=== PATIENT | female | born 1985 | race Caucasian/White ===

== ENCOUNTER 2018-02-06 08:24 | Day surgery (SDC) | payer BC, OTHER ==
[2018-02-06] MEDS ORDERED: Glycopyrrolate 0.2 MG/ML 2 ML SDV IV ONE (08:25)
[2018-02-06] MEDS ORDERED: Ondansetron 4 MG/2 ML SDV IV ONE (08:25)
[2018-02-06] MEDS ORDERED: Midazolam 1 MG/ML 2 ML SDV IV ONE (08:25)
[2018-02-06] MEDS ORDERED: fentaNYL 100 MCG/2 ML SDV IV ONE (08:25)
[2018-02-06] MEDS ORDERED: Ketorolac 30 MG/ML SDV IVPUSH ONE (08:25)
[2018-02-06] MEDS ORDERED: Propofol 200 MG/20 ML SDV IV ONE (08:25)
[2018-02-06] MEDS ORDERED: Dexamethasone 4 MG/ML SDV IV ONE (08:25)
[2018-02-06] MEDS ORDERED: Lactated Ringers 1,000 ML IV SCH (10:00)
[2018-02-06] MEDS ORDERED: Silver Nitrate Applicator Each ONE (10:05)
[2018-02-06] MEDS ORDERED: Ferric Subsulfate Topical Soln 8 GM (8 ML) Bottle ONE (10:05)
[2018-02-06] MEDS ORDERED: Oxytocin/Normal Saline 0 UNIT/0 ML BAG ONE (10:06)
--- NOTE | 2018-02-06 11:54 | OR ---
DATE: 02/06/2018 PREOPERATIVE DIAGNOSIS: Persistent menorrhagia and significant clotting. OPERATION PERFORMED: Examination under anesthesia with D and C. POSTOPERATIVE DIAGNOSES: Persistent menorrhagia and significant clotting with evidence of second-degree uterine prolapse. COMPLICATIONS: None. ESTIMATED BLOOD LOSS: 25 mL. ANESTHESIA: General. DESCRIPTION: After the induction of satisfactory general anesthesia and with the vagina and cervix routinely prepped and draped in the dorsal lithotomy position, the weighted speculum was inserted. Just before this, the pelvic exam was done and revealed no cervical lesions. The uterus was in the [id number] position and was thought to be normal sized. There were no adnexal masses detected. Vaginal canal was negative and vulvar exam also was negative. Now, the single-tooth tenaculum was attached to the anterior lip of the cervix and I did notice a second-degree uterine prolapse present. The endocervical canal was now carefully inspected further and the uterus was sounded to 8 cm. Now, the endocervical canal was progressively dilated to #8. Now the curette was introduced and a moderate amount of tissue was obtained on the curettage. Great caution was taken to make sure that all aspects of the endometrial cavity were carefully and systematically curetted. Grossly, the tissue appeared within normal limits. Once again, the curettage was repeated and extra caution was taken to make sure that all aspects of the cavity were carefully and systematically curetted. All of this tissue was submitted to pathology of course. All of the instruments were now removed. The operative site was hemostatic. Estimated blood loss was approximately 25 mL. Sponge count was reported as correct. There were no intraoperative nor immediate postoperative complications whatsoever. The patient tolerated the procedure well and went to the recovery room in good condition. The patient does have evidence of second-degree uterine prolapse as mentioned above. Postoperative instructions have also been given to her and she will call us at once if any questions or problems with fever, excess pain, excess bleeding, unusual malaise, or any bothersome symptoms whatsoever. She will avoid intercourse for approximately 2-3 weeks. She will see me in the office in approximately 10-12 days and if she is doing well, she can report to me on the telephone and does not need to see us in the office. The patient will monitor her symptoms closely in the next subsequent months and let us know if any symptoms seem to persist, change, or worsen of course. [facility] /[id number]
[2018-02-06 12:29] VITALS: BP 111/50
== END 2018-02-06 12:36 | disposition home or self-care (01) ==
LOC: DL.SDS 08:24
PROVIDERS: ATTEND Obstetrics & Gynecology
DX: N92.0 Excessive and frequent menstruation with regular cycle (principal); N81.2 Incomplete uterovaginal prolapse; Z79.899 Other long term (current) drug therapy
CPT/HCPCS: 36415; 58120; 81025; 85027; J1100; J1885; J2250; J2405; J2704; J3010; J7120; J3490

== ENCOUNTER 2018-05-06 23:55 | Emergency (ER) | payer OTHER ==
[2018-05-07 00:34] VITALS: BP 132/61
[2018-05-07] MEDS ORDERED: Ondansetron 4 MG/2 ML SDV IV ONE (02:08)
[2018-05-07] MEDS ORDERED: Sodium Chloride 0.9% 1,000 ML IV ONE (02:11)
[2018-05-07] MEDS ORDERED: Ketorolac 30 MG/ML SDV IVPUSH ONE (02:20)
[2018-05-07 02:46] LABS: ANION GAP 9.6; CHLORIDE,CL 107 mmol/L (101-111); SODIUM,NA 138 mmol/L (135-145)
--- NOTE | 2018-05-07 03:06 | EDM.PDOC ---
ED HPI GENERAL MEDICAL PROBLEM - General Chief Complaint: Headache Stated Complaint: HEADACHE, FEEL OFF [id number] Time Seen by Provider: 05/07/18 00:35 Source of Information: Reports: Patient History Limitations: Reports: No Limitations - History of Present Illness INITIAL COMMENTS - FREE TEXT/NARRATIVE: Migraine hx, usually every 6 months, experiences aura normally, tonight went to bed with headache woke feeling disoriented and blurred vision, some tingling in right hand. All previous with headaches, Better now. Took 600mg ibuprofen. Nausea earlier better now also. Thinks dehydrated. Some light sensitivity Headache Pain Score (Numeric/FACES): 6 - Related Data Allergies Allergy/AdvReac Type Severity Reaction Status Date / Time No Known Allergies Allergy Verified 05/07/18 00:34 Home Meds: Home Meds Ibuprofen 600 mg PO ASDIRECTED PRN 11/26/14 [History] Multivitamin [Multi-Vitamin Daily] 1 tab PO DAILY 02/05/18 [History] Past Medical History - Past Health History Medical/Surgical History: Denies Medical/Surgical History HEENT History: Reports: None Cardiovascular History: Reports: None Respiratory History: Reports: None Gastrointestinal History: Reports: GERD Genitourinary History: Reports: None 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: Musculoskeletal History: Reports: Back Pain, Chronic Other Musculoskeletal History: Left breast lump (Nov-2014) Neurological History: Reports: Migraines Psychiatric History: Reports: ADD Endocrine/Metabolic History: Reports: None Hematologic History: Reports: None Immunologic History: Reports: None Oncologic (Cancer) History: Reports: None Other Oncologic History: lump on left breast Dermatologic History: Reports: None - Infectious Disease History Infectious Disease History: Reports: Chicken Pox - Past Surgical History Head Surgeries/Procedures: Reports: None Other HEENT Surgeries/Procedures: [place] teeth and skin graft to mouth Respiratory Surgical History: Reports: None GI Surgical History: Reports: Colonoscopy Other GI Surgeries/Procedures: has a hernia Female Surgical History: Reports: None Musculoskeletal Surgical History: Reports: None Oncologic Surgical History: Reports: Biopsy of Breast Social & Family History - Family History Family Medical History: Noncontributory - Tobacco Use Smoking Status *Q: Never Smoker - Caffeine Use Caffeine Use: Reports: Coffee Caffeine Use Comment: 2. cups daily - Recreational Drug Use Recreational Drug Use: No - Living Situation & Occupation Living situation: Reports: Occupation: Employed ED ROS GENERAL - Review of Systems Review Of Systems: ROS reveals no pertinent complaints other than HPI. - Physical Exam Exam: See Below Exam Limited By: No Limitations General Appearance: Alert, No Apparent Distress, Anxious Eye Exam: Bilateral Eye: EOMI, PERRL, Other (photosensitive) Ears: Normal External Exam, Normal TMs Nose: Normal Inspection Throat/Mouth: Normal Inspection, Normal Lips, Normal Voice Head Exam: Atraumatic, Normocephalic Neck: Normal Inspection, Full Range of Motion, Tender Lateral (muscle tension). No: Limited Range of Motion, Tender Midline Respiratory/Chest: No Respiratory Distress, Lungs Clear Cardiovascular: Normal Peripheral Pulses, Regular Rate, Rhythm GI/Abdominal: Normal Bowel Sounds, Soft Neuro Exam (Abbreviated): Alert, Oriented, Normal Cognition, No Motor/Sensory Deficits. No: Confused, Disoriented, Slow to Respond, Memory Loss Recent Events , Abnormal Gait, Abnormal Reflexes Back Exam: Normal Inspection Extremities: Normal Inspection Psychiatric: Normal Affect, Normal Mood Skin Exam: Warm, Dry, Intact, Normal Color Course - Vital Signs Last Recorded V/S: Last Vital Signs Temp 97.6 F 05/07/18 00:29 Pulse 60 05/07/18 00:29 Resp 16 05/07/18 00:29 BP 132/61 05/07/18 00:29 Pulse Ox 100 05/07/18 00:29 - Orders/Labs/Meds Labs: Laboratory Tests 05/07/18 05/07/18 Range/Units 02:20 02:20 WBC 4.8 L (5.0-10.0) 10^3/uL RBC 3.92 L (4.2-5.4) 10^6/uL Hgb 12.1 D (12.0-16.0) g/dL Hct 36.8 L (37.0-47.0) % MCV 93.9 (80-100) fL MCH 30.9 (27.0-34.0) pg MCHC 32.9 L (33.0-35.0) g/dL Plt Count 235 (150-450) 10^3/uL Neut % (Auto) 46.2 (42.2-75.2) % Lymph % (Auto) 44.9 (20.5-50.1) % [place] % (Auto) 7.9 (2-8) % Eos % (Auto) 0.8 L (1.0-3.0) % Baso % (Auto) 0.2 (0.0-1.0) % Sodium 138 (135-145) mmol/L Potassium 3.6 (3.6-5.0) mmol/L Chloride 107 (101-111) mmol/L Carbon Dioxide 25.0 (21.0-31.0) mmol/L Anion Gap 9.6 BUN 14 (7-18) mg/dL Creatinine 0.8 (0.6-1.3) mg/dL Est Cr Clr Drug Dosing 110.18 mL/min Estimated GFR (MDRD) > 60 BUN/Creatinine Ratio 17.50 Glucose 86 (74-105) mg/dL Calcium 9.0 (8.4-10.2) mg/dl Total Bilirubin 0.5 (0.2-1.0) mg/dL AST 15 (10-42) IU/L ALT 15 (10-60) IU/L Alkaline Phosphatase 27 L (42-121) IU/L Total Protein 6.9 (6.7-8.2) g/dl Albumin 4.4 (3.2-5.5) g/dl Globulin 2.5 Albumin/Globulin Ratio 1.76 Meds: Medications Discontinued Medications Generic Name Dose Route Start Last Admin Trade Name Freq PRN Reason Stop Dose Admin Sodium Chloride 1,000 mls @ 999 mls/hr 05/07/18 02:11 05/07/18 02:24 Normal Saline IV 05/07/18 03:11 999 mls/hr .BOLUS ONE Administration Ketorolac Tromethamine 15 mg 05/07/18 02:20 05/07/18 02:24 Toradol IVPUSH 05/07/18 02:21 15 mg ONETIME ONE Administration Ondansetron HCl 4 mg 05/07/18 02:08 Zofran IV 05/07/18 02:09 ONETIME ONE Departure - Departure Time of Disposition: 03:04 Disposition: Home, Self-Care 01 Condition: Good Clinical Impression: Migraine - Discharge Information Forms: ED Department Discharge Additional Instructions: rest light activity increase fluid intake follow up as needed
== END 2018-05-07 03:16 | disposition home or self-care (01) ==
LOC: DL.ED 23:55
DX: G43.909 Migraine, unspecified, not intractable, without status migrainosus (principal)
CPT/HCPCS: 36415; 80053; 85025; 96361; 96374; 99283; J1885; J7030

== ENCOUNTER 2019-09-26 21:31 | Emergency (ER) | payer BC ==
[2019-09-26 21:43] VITALS: BP 119/69; PULSE 54
[2019-09-26 22:14] LABS: ANION GAP 12.6; CHLORIDE,CL 104 mmol/L (101-111); SODIUM,NA 136 mmol/L (135-145)
--- NOTE | 2019-09-26 22:14 | EDM.PDOC ---
ED HPI GENERAL MEDICAL PROBLEM - General Chief Complaint: Abdominal Pain Stated Complaint: DONT FEEL GOOD Time Seen by Provider: 09/26/19 22:04 Source of Information: Reports: Patient History Limitations: Reports: No Limitations - History of Present Illness INITIAL COMMENTS - FREE TEXT/NARRATIVE: ED ambulatory with c/o mid abdominal pain, some improvement from onset of pain, Diarrhea mutiple times this dave. Nausea at onset none now. No fever or chills. Previous cholecystectomy. No similar sx. No other family members ill. 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: Musculoskeletal History: Reports: Back Pain, Chronic Other Musculoskeletal History: Left breast lump (Nov-2014) Neurological History: Reports: Migraines Psychiatric History: Reports: ADD Endocrine/Metabolic History: Reports: None Hematologic History: Reports: None Immunologic History: Reports: None Oncologic (Cancer) History: Reports: None Other Oncologic History: lump on left breast Dermatologic History: Reports: None - Infectious Disease History Infectious Disease History: Reports: Chicken Pox - Past Surgical History Head Surgeries/Procedures: Reports: None Other HEENT Surgeries/Procedures: [place] teeth and skin graft to mouth Respiratory Surgical History: Reports: None GI Surgical History: Reports: Cholecystectomy, Colonoscopy Other GI Surgeries/Procedures: has a hernia Female Surgical History: Reports: None Musculoskeletal Surgical History: Reports: None Oncologic Surgical History: Reports: Biopsy of Breast Social & Family History - Family History Family Medical History: Noncontributory - Tobacco Use Smoking Status *Q: Former Smoker Used Tobacco, but Quit: Yes Month/Year Tobacco Last Used: 0000 - Caffeine Use Caffeine Use: Reports: Coffee Caffeine Use Comment: 2. cups daily - Recreational Drug Use Recreational Drug Use: No - Living Situation & Occupation Living situation: Reports: Occupation: Employed ED ROS GENERAL - Review of Systems Review Of Systems: Comprehensive ROS is negative, except as noted in HPI. ED EXAM, GI/ABD - Physical Exam Exam: See Below Exam Limited By: No Limitations General Appearance: Alert, Mild Distress ( appears improved, less discomfort than on presentation to ED. ) Eyes: Bilateral: EOMI Ears: Normal External Exam Nose: Normal Inspection Throat/Mouth: Normal Inspection Head: Atraumatic, Normocephalic Neck: Normal Inspection Respiratory/Chest: No Respiratory Distress, Lungs Clear, Normal Breath Sounds Cardiovascular: Regular Rate, Rhythm GI/Abdominal Exam: Normal Bowel Sounds, Soft, Non-Tender Back Exam: Normal Inspection, Full Range of Motion Extremities: Normal Inspection Neurological: Alert, Oriented, Normal Cognition Psychiatric: Normal Affect Skin Exam: Warm, Dry, Intact, Normal Color. No: Diaphoretic, Pallor Course - Vital Signs Last Recorded V/S: Last Vital Signs Temp 96.2 F 09/26/19 21:39 Pulse 54 L 09/26/19 21:39 Resp 16 09/26/19 21:39 BP 119/69 09/26/19 21:39 Pulse Ox 100 09/26/19 21:39 - Orders/Labs/Meds Labs: Laboratory Tests 09/26/19 09/26/19 09/26/19 Range/Units 21:48 21:48 21:48 WBC 5.9 (5.0-10.0) 10^3/uL RBC 4.28 (4.2-5.4) 10^6/uL Hgb 13.5 (12.0-16.0) g/dL Hct 38.9 (37.0-47.0) % MCV 90.9 D (80-100) fL MCH 31.5 (27.0-34.0) pg MCHC 34.7 (33.0-35.0) g/dL Plt Count 236 (150-450) 10^3/uL Neut % (Auto) 67.3 (42.2-75.2) % Lymph % (Auto) 23.6 (20.5-50.1) % [place] % (Auto) 7.8 (2-8) % Eos % (Auto) 1.0 (1.0-3.0) % Baso % (Auto) 0.3 (0.0-1.0) % Sodium 136 (135-145) mmol/L Potassium 3.6 (3.6-5.0) mmol/L Chloride 104 (101-111) mmol/L Carbon Dioxide 23.0 (21.0-31.0) mmol/L Anion Gap 12.6 BUN 13 (7-18) mg/dL Creatinine 0.7 (0.6-1.3) mg/dL Est Cr Clr Drug Dosing 120.58 mL/min Estimated GFR (MDRD) > 60 BUN/Creatinine Ratio 18.57 Glucose 101 (74-105) mg/dL Lactic Acid 1.0 (0.5-2.2) mmol/L Calcium 8.7 (8.4-10.2) mg/dl Total Bilirubin 0.7 (0.2-1.0) mg/dL AST 40 (10-42) IU/L ALT 30 (10-60) IU/L Alkaline Phosphatase 35 L (42-121) IU/L Total Protein 7.2 (6.7-8.2) g/dl Albumin 4.5 (3.2-5.5) g/dl Globulin 2.7 Albumin/Globulin Ratio 1.67 Urine Color (YELLOW) Urine Appearance (CLEAR) Urine pH (5.0-9.0) Ur Specific [place] (1.005-1.030) Urine Protein (NEGATIVE) Urine Glucose (UA) (NEGATIVE) Urine Ketones (NEGATIVE) Urine Occult Blood (NEGATIVE) Urine Nitrite (NEGATIVE) Urine Bilirubin (NEGATIVE) Urine Urobilinogen (0.2-1.0) mg/dL Ur Leukocyte Esterase (NEGATIVE) Urine RBC /HPF Urine WBC (0-5/HPF) /HPF Ur Epithelial Cells (NOT SEEN) /HPF Urine Bacteria (0-FEW/HPF) /HPF Urine Mucus (NOT SEEN) /LPF Urine HCG, Qual 09/26/19 09/26/19 Range/Units 22:09 22:09 WBC (5.0-10.0) 10^3/uL RBC (4.2-5.4) 10^6/uL Hgb (12.0-16.0) g/dL Hct (37.0-47.0) % MCV (80-100) fL MCH (27.0-34.0) pg MCHC (33.0-35.0) g/dL Plt Count (150-450) 10^3/uL Neut % (Auto) (42.2-75.2) % Lymph % (Auto) (20.5-50.1) % [place] % (Auto) (2-8) % Eos % (Auto) (1.0-3.0) % Baso % (Auto) (0.0-1.0) % Sodium (135-145) mmol/L Potassium (3.6-5.0) mmol/L Chloride (101-111) mmol/L Carbon Dioxide (21.0-31.0) mmol/L Anion Gap BUN (7-18) mg/dL Creatinine (0.6-1.3) mg/dL Est Cr Clr Drug Dosing mL/min Estimated GFR (MDRD) BUN/Creatinine Ratio Glucose (74-105) mg/dL Lactic Acid (0.5-2.2) mmol/L Calcium (8.4-10.2) mg/dl Total Bilirubin (0.2-1.0) mg/dL AST (10-42) IU/L ALT (10-60) IU/L Alkaline Phosphatase (42-121) IU/L Total Protein (6.7-8.2) g/dl Albumin (3.2-5.5) g/dl Globulin Albumin/Globulin Ratio Urine Color Yellow (YELLOW) Urine Appearance Clear (CLEAR) Urine pH 6.5 (5.0-9.0) Ur Specific [place] 1.025 (1.005-1.030) Urine Protein Trace H (NEGATIVE) Urine Glucose (UA) Negative (NEGATIVE) Urine Ketones Negative (NEGATIVE) Urine Occult Blood Trace-intact H (NEGATIVE) Urine Nitrite Negative (NEGATIVE) Urine Bilirubin Negative (NEGATIVE) Urine Urobilinogen 1.0 (0.2-1.0) mg/dL Ur Leukocyte Esterase Negative (NEGATIVE) Urine RBC 5-10 H /HPF Urine WBC 5-10 H (0-5/HPF) /HPF Ur Epithelial Cells Moderate H (NOT SEEN) /HPF Urine Bacteria Few (0-FEW/HPF) /HPF Urine Mucus Moderate H (NOT SEEN) /LPF Urine HCG, Qual Negative - Re-Assessments/Exams Free Text/Narrative Re-Assessment/Exam: 09/27/19 02:55 Pain improved Departure - Departure Time of Disposition: 22:46 Disposition: Home, Self-Care 01 Condition: Good Clinical Impression: Gastroenteritis Hematuria Qualifiers: Hematuria type: unspecified type Qualified Code(s): R31.9 - Hematuria, unspecified - Discharge Information *PRESCRIPTION DRUG MONITORING PROGRAM REVIEWED*: No *COPY OF PRESCRIPTION DRUG MONITORING REPORT IN PATIENT JAYMIE: No Instructions: Viral Gastroenteritis, Adult Referrals: PCP,None [Ordering Only Provider] - Forms: ED Department Discharge Additional Instructions: recheck urine this week clear liquid diet advance slowly follow up if symptoms worsen
== END 2019-09-26 22:55 | disposition home or self-care (01) ==
LOC: DL.ED 21:31
DX: K52.9 Noninfective gastroenteritis and colitis, unspecified (principal); R31.9 Hematuria, unspecified; Z87.891 Personal history of nicotine dependence
CPT/HCPCS: 36415; 80053; 81001; 81025; 83605; 85025; 99284

== ENCOUNTER 2020-05-16 05:32 | Day surgery (SDC) | payer BC ==
[2020-05-16] MEDS ORDERED: Midazolam 1 MG/ML 2 ML SDV IV ONE ×3 (05:33→06:37)
[2020-05-16] MEDS ORDERED: fentaNYL 100 MCG/2 ML SDV IV ONE ×3 (05:33→06:36)
[2020-05-16] MEDS ORDERED: fentaNYL 100 MCG/2 ML SDV ONE (06:12)
[2020-05-16] MEDS ORDERED: Midazolam 1 MG/ML 2 ML SDV ONE (06:12)
[2020-05-16] MEDS ORDERED: Dextrose 5%-0.45% NaCl 1,000 ML IV SCH (06:15)
--- NOTE | 2020-05-16 08:50 | OR ---
DATE: 05/16/2020 PROCEDURE: Esophagogastroduodenoscopy and multiple pinch biopsies. INSTRUMENT USED: GIF-H180 Olympus video panendoscope. PREMEDICATIONS: No oral or topical anesthesia used. Fentanyl 100 mcg intravenous, Versed 2 mg intravenous. The procedure was done under pulse oximetry, BP recording, and traffic monitor specialist. INDICATION: The patient with persistent heartburn, unexplained and not responsive to medical measures, on PPI. Esophagogastroduodenoscopy is performed for detection of any active erosive lesions, Christie esophagus and/or malignancy also under consideration, H pylori status to be determined, endoscopic hemostasis therapy if needed. PROCEDURE IN DETAIL: The scope was passed with ease. Adequate visualization of the esophagus was made from proximal to distal areas. No upper esophageal lesions identified. No distal esophageal stricture. No uphill or downhill esophageal varices. No Lakisha-Shane tear. No evidence of erosive esophagitis by Yates criteria. No esophageal polyp or tumor mass identified. Z-line was seen at around 40 cm distal to the oral verge, configuration consistent with class I by ZAP classification. No proximal gastric varices noted. Gastric fundus examination by retroflexion showed no polypoid lesions. No gastric ulcer, malignant mass, or vascular ectasia identified. Duodenal bulb showed no ulcer. Visualized second part of the duodenum was unremarkable. Multiple pinch biopsies were obtained from the gastric antrum and proximal body and sent for PyloriTek test for H pylori, and if negative in an hour, the tissue is to be sent for histopathology. No bleeding was noted from any of the visualized areas at the completion of examination. Photographs were taken of the duodenal bulb, gastric antrum, fundus, and distal esophagus. IMPRESSION: Normal study. The patient tolerated the procedure well. [facility] /[id number]
[2020-05-16 09:02] VITALS: BP 99/62; PULSE 50
== END 2020-05-16 08:31 | disposition home or self-care (01) ==
LOC: DL.ENDO 05:32
PROVIDERS: ATTEND Internal Medicine Gastroenterology
DX: K31.9 Disease of stomach and duodenum, unspecified (principal); F98.8 Other specified behavioral and emotional disorders with onset usually occurring in childhood and adolescence; Z98.890 Other specified postprocedural states; Z90.49 Acquired absence of other specified parts of digestive tract; Z87.440 Personal history of urinary (tract) infections; Z87.891 Personal history of nicotine dependence
CPT/HCPCS: 87077; J2250; J3010; J7042